=== PATIENT | female | born 2000 | race Caucasian/White ===

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

== ENCOUNTER 2019-05-26 00:59 | Emergency (ER) | payer OTHER ==
--- NOTE | 2019-05-26 01:57 | ED ---
Abdominal Pain/Female - HPI Summary HPI Summary: This patient is a 18 year old female presenting to [facility] with a chief complaint of lower abdominal pain. The patient states it started yesterday and that it was moderate intermittent pain and then 2 hours ago she felt the pain was constant and severe. She states the pain is worse with movement. She reports nausea. She has never had any abdominal surgeries. She states the pain does not radiate. - History of Current Complaint Chief Complaint: EDAbdPain Stated Complaint: ABD PAIN PER PT Time Seen by Provider: 05/26/19 01:51 Hx Obtained From: Patient Hx Last Menstrual Period: 1 WEEK AGO Onset/Duration: Lasting Days Severity Initially: Moderate Pain Intensity: 4 Pain Scale Used: 0-10 Numeric Location: Discrete At: LUQ, Discrete At: LLQ Allergies/Adverse Reactions: Allergies Allergy/AdvReac Type Severity Reaction Status Date / Time No Known Allergies Allergy Verified 05/26/19 01:02 PMH/Surg Hx/FS Hx/Imm Hx Respiratory History: Reports: Hx Asthma Sensory History: Reports: Hx Contacts or Glasses Denies: Hx Hearing Aid Opthamlomology History: Reports: Hx Contacts or Glasses Psychiatric History: Reports: Hx Anxiety, Hx Depression, Hx Community Mental Health Tx, Hx Suicide Attempt Denies: Hx Eating Disorder, Hx of Violent Episodes Against Others - Surgical History Surgery Procedure, Year, and Place: [place] teeth removal. Infectious Disease History: No Infectious Disease History: Denies: Traveled Outside the [place] in Last 30 Days - Family History Known Family History: Positive: Hypertension, Other - Depression - Social History Alcohol Use: None Hx Substance Use: No Substance Use Type: Reports: None Hx Tobacco Use: No Smoking Status (MU): Never Smoked Tobacco Amount Used/How Often: has not used tobacco products in the last 30 days Have You Smoked in the Last Year: No Review of Systems Negative: Fever Positive: Abdominal Pain, Nausea All Other Systems Reviewed And Are Negative: Yes Physical Exam - Summary Physical Exam Summary: Appearance: Well-appearing, Well-nourished, lying in bed comfortably Skin: Warm, dry, no obvious rash Eyes: sclera anicteric, no conjunctival pallor ENT: mucous membranes moist, pharynx appears normal Neck: Supple, nontender Respiratory: Clear to auscultation, no signs of respiratory distress Cardiovascular: Normal S1, S2. No murmurs. Normal distal pulses in tibial and radial bilaterally. Abdomen: Soft, LLQ and RLQ tenderness, normal active bowel sounds present Musculoskeletal: Normal, Strength/ROM Intact Neurological: A&Ox3, awake and alert, mentation is normal, speech is fluent and appropriate Psychiatric: affect is normal, does not appear anxious or depressed Triage Information Reviewed: Yes Vital Signs On Initial Exam: Initial Vitals Temp Pulse Resp BP Pulse Ox 97.8 F 93 16 114/75 97 05/26/19 01:00 05/26/19 01:00 05/26/19 01:00 05/26/19 01:00 05/26/19 01:00 Vital Signs Reviewed: Yes Diagnostics - Vital Signs Vital Signs Temp Pulse Resp BP Pulse Ox 05/26/19 01:00 97.8 F 93 16 114/75 97 - Laboratory Result Diagrams: 05/26/19 02:05 05/26/19 02:05 Lab Statement: Any lab studies that have been ordered have been reviewed, and results considered in the medical decision making process. - CT Abd/Pel CT Interpretation Completed By: Radiologist Summary of CT Findings: 1. NO acute inflammatory findings in the abdomen or pelvis. Normal appendix. 2. Small amount of free fluid in the RLQ. ED Provider has reviewed this report. Abdominal Pain Fem Course/Dx - Course Course Of Treatment: This patient is a 18 year old female presenting to [facility] with a chief complaint of lower abdominal pain. CT Abd/Pel was unremarkable for appendicitis, however it showed some free fluid in the pelvis. This could mean a ruptured ovarian cyst. She was administered Zofran for her nausea and morphine for her pain. A plan for discharge was discussed with the patient and she was agreeable with this plan. - Diagnoses Provider Diagnoses: Acute abdominal pain Discharge ED - Sign-Out/Discharge Documenting (check all that apply): Patient Departure - Discharge Patient Received Moderate/Deep Sedation with Procedure: No - Discharge Plan Condition: Good Disposition: HOME Patient Education Materials: Acute Abdominal Pain (ED) Referrals: Mt Gonzalez MD [Primary Care Provider] - 3 Days (if no better) Additional Instructions: The CT scan was negative for signs of appendicitis, though there is a small amount of free fluid in the right side of the pelvis. This would go along with a ruptured ovarian cyst. I suspect the pain will giovanni over the next day or two. - Billing Disposition and Condition Condition: GOOD Disposition: Home - Attestation Statements Document Initiated by Martha: Yes Documenting Scribe: Je Echeverria Provider For Whom Martha is Documenting (Include Credential): Lopez Gillespie MD Scribe Attestation: Je Renteria, scribed for Lopez Gillespie MD on 05/26/19 at 2333. Scribe Documentation Reviewed: Yes Provider Attestation: The documentation as recorded by the Je collier accurately reflects the service I personally performed and the decisions made by me, Lopez Gillespie MD Status of Scribe Document: Viewed
[2019-05-26] MEDS ORDERED: Morphine 4 MG/ML VIAL (1 ml) 4 MG/ML VIAL IV PRN (01:58)
[2019-05-26 02:06] LABS: Urine Appearance Clear; Urine Bilirubin Negative (Negative); Urine Blood Negative (Negative); Urine Color Yellow; Urine Glucose Negative (Negative); Urine Ketones 1+ (Negative); Urine Nitrite Negative (Negative); Urine Protein Negative (Negative); Urine Specific Gravity 1.029 (1.010-1.030); Urine Urobilinogen Negative (Negative)
[2019-05-26] MEDS: NS 0.9% 1000 ML** 2,000 ML IV ONE (02:12)
[2019-05-26 02:13] LABS: ABS Monocytes 1.1 10^3/ul (0-0.8); ABS Neutrophils 11.6 10^3/ul (1.5-7.7); Eosinophil % 0.3 %; Hematocrit 40 % (35-47); Hemoglobin 13.6 g/dL (12.0-16.0); Lymphocyte % 7.5 %; Mean Corpuscular HGB Conc 34 g/dL (31-36); Mean Corpuscular Hemoglobin 31 pg (27-31); Mean Corpuscular Volume 91 fL (80-97); Mean Platelet Volume 9.2 fL (7.4-10.4); Nucleated Red Blood Cells % 0.1; Platelet Count 178 10^3/uL (150-450); Red Blood Count 4.44 10^6 /uL (3.70-4.87); Red Cell Distribution Width 12 % (10-15); White Blood Count 13.8 10^3/uL (3.5-10.8)
[2019-05-26 02:33] LABS: ALT 11 U/L (7-52); AST 14 U/L (13-39); Albumin 4.4 g/dL (3.2-5.2); Alkaline Phosphatase 47 U/L (34-104); Anion Gap 4 mmol/L (2-11); BUN/Creatinine Ratio 27.8 (8-20); Blood Urea Nitrogen 20 mg/dL (6-24); C Reactive Protein 1.85 mg/L (<8.01); CO2 Carbon Dioxide 28 mmol/L (22-32); Calcium 9.5 mg/dL (8.6-10.3); Chloride 104 mmol/L (101-111); EGFR Non-African American 103.3 (>60); Globulin 2.2 g/dL (2-4); Glucose 106 mg/dL (70-100); Potassium 4.1 mmol/L (3.5-5.0); Sodium 136 mmol/L (135-145); Total Protein 6.6 g/dL (6.4-8.9)
[2019-05-26 02:39] LABS: HCG Pregnancy < 0.60 mIU/mL
[2019-05-26] MEDS ORDERED: Ondansetron INJ* 2 MG/ML VIAL IV ONE (03:54)
[2019-05-26] MEDS ORDERED: Iohexol 300* (CONTRAST) 10 ML SDV IV ONE (04:20)
[2019-05-26 05:53] VITALS: BP 107/68
== END 2019-05-26 05:53 | disposition home or self-care (01) ==
LOC: ED 00:59
DX: R10.32 Left lower quadrant pain (principal); R10.31 Right lower quadrant pain; R11.0 Nausea
CPT/HCPCS: 36415; 74177; 80053; 81003; 83690; 84702; 85025; 86140; 96361; 96374; 96375; 99283; J2270; J2405; Q9967